=== PATIENT | female | born 1970 | race Caucasian/White ===

== ENCOUNTER 2016-08-07 12:20 | Emergency (ER) | payer OTHER ==
[~2016-08-07] VITALS: Ht 160 cm; Wt 44.3 kg
[~2016-08-07 12:20] MED LIST: CHERATUSSIN AC473 ML PO; CLARITHROMYCIN500 M1 PO; ENDOCET 5-3251 EACH PO; HYCODAN SYRUP480 ML PO; LEVAQUIN750 MG PO; LIDOCAINE700 MG TD; LODINE400 MG PO; LYRICA50 MG PO; MIRTAZAPINE45 MG PO; MOBIC7.5 MG PO; NAPROSYN500 MG PO; OXYMORPHONE HCL10 M1 PO; OXYMORPHONE HCL5 M1 PO; PREDNISONE20 MG PO; TIZANIDINE HCL4 MG PO; VENTOLIN HFA18 GM IH
[2016-08-07 12:53] LABS: HEMATOCRIT 45.4 % (36.0-46.0); MCH 29.8 PG (29.0-34.0); MCHC 33.3 G/DL (30.0-36.0); MCV 89.7 FL (83-99); MEAN PLAT.VOLUME 9.2 uM^3 (9.5-12.4); PLATELET COUNT 291 K/uL (156-360); RBC DIS.WIDTH-CV 12.9 % (11.8-14.6); RBC DIS.WIDTH-SD 42.5 % (39-53); RED BLOOD COUNT 5.06 M/uL (3.80-5.20); WHITE BLOOD COUNT 6.4 K/uL (4.1-10.2)
[2016-08-07 13:01] LABS: CHLORIDE 106 mEq/L (99-109); POTASSIUM 4.4 mEq/L (3.7-5.4); SODIUM 140 mEq/L (136-147)
[2016-08-07 13:02] LABS: GLUCOSE 96 mg/dL (70-99)
[2016-08-07 13:04] LABS: ANION GAP 9 MEQ/L (2-14)
[2016-08-07 13:06] LABS: GFR ESTIMATE (CALCULATED) > 59 mL/min/
[2016-08-07 13:07] LABS: UREA NITROGEN (BUN) 6 mg/dL (9-23)
[2016-08-07 13:54] LABS: ADD MIUA? YES; BILIRUBIN NEGATIVE; BLOOD MODERATE; COLOR YELLOW ((YELLOW)); GLUCOSE (STRIP) NEGATIVE; KETONES NEGATIVE; LEUKOCYTES NEGATIVE; NITRITE NEGATIVE; PROTEIN (STRIP) NEGATIVE; UROBILINOGEN 0.2 MG/DL (0.2-1.0)
[2016-08-07 14:03] LABS: BACTERIA RARE /HPF; CALCIUM OXALATE CRYSTALS 2+ /HPF; EPITHELIAL CELLS 1+ /HPF; MUCUS TRACE /LPF; RED BLOOD CELLS 0-5 /HPF (0-5); UCUL ADDED? NO; WHITE BLOOD CELLS 0-5 /HPF (0-5)
[2016-08-07] MEDS ORDERED: PERCOCET 5/31 TABLET PO (16:04)
[2016-08-07 16:13] VITALS: BP 113/64
== END 2016-08-07 16:14 | disposition home or self-care (01) ==
LOC: EME 12:20
DX: R10.31 Right lower quadrant pain (principal); J44.9 Chronic obstructive pulmonary disease, unspecified; E78.5 Hyperlipidemia, unspecified; Z87.442 Personal history of urinary calculi; G89.29 Other chronic pain; F17.200 Nicotine dependence, unspecified, uncomplicated
CPT/HCPCS: 74176; 80048; 81003; 85027; 99281; 99284

== ENCOUNTER 2016-08-13 12:54 | Observation (INO) | payer OTHER ==
[~2016-08-13] VITALS: Ht 157.5 cm; Wt 43.6 kg
[~2016-08-13 12:54] MED LIST changes: +PERCOCET 5/31 TABLET PO
[2016-08-13 14:15] LABS: HEMATOCRIT 46.9 % (36.0-46.0); MCHC 33.7 G/DL (30.0-36.0); MEAN PLAT.VOLUME 9.5 uM^3 (9.5-12.4); PLATELET COUNT 283 K/uL (156-360); RBC DIS.WIDTH-CV 12.6 % (11.8-14.6); RBC DIS.WIDTH-SD 41.4 % (39-53); RED BLOOD COUNT 5.27 M/uL (3.80-5.20); WHITE BLOOD COUNT 6.4 K/uL (4.1-10.2)
[2016-08-13 14:24] LABS: CHLORIDE 107 mEq/L (99-109); SODIUM 140 mEq/L (136-147)
[2016-08-13 14:26] LABS: GLUCOSE 85 mg/dL (70-99)
[2016-08-13 14:28] LABS: ANION GAP 11 MEQ/L (2-14)
[2016-08-13 14:30] LABS: ALKALINE PHOSPHATASE 98 IU/L (3-129); GFR ESTIMATE (CALCULATED) > 59 mL/min/
[2016-08-13 14:31] LABS: UREA NITROGEN (BUN) 8 mg/dL (9-23)
[2016-08-13 14:36] LABS: TROP-I INTERPRETATION NEGATIVE; TROPONIN-I < 0.01 ng/mL (0.0-0.30)
[2016-08-13 16:25] LABS: TROP-I INTERPRETATION NEGATIVE; TROPONIN-I < 0.01 ng/mL (0.0-0.30)
[2016-08-13 19:20] VITALS: BP 134/82
[2016-08-13 19:48] VITALS: BP 124/64
[2016-08-13 23:30] LABS: TROP-I INTERPRETATION NEGATIVE; TROPONIN-I < 0.01 ng/mL (0.0-0.30)
[2016-08-14] VITALS: BP 119/70; BP 120/57
[2016-08-14 04:00] VITALS: BP 111/53
[2016-08-14 06:19] LABS: TROP-I INTERPRETATION NEGATIVE; TROPONIN-I 0.02 ng/mL (0.0-0.30)
[2016-08-14 07:00] VITALS: BP 103/64
[2016-08-14] MEDS ORDERED: OMEPRAZOLE40 M1 PO (10:07)
[2016-08-14] MEDS ORDERED: ASPIR-LOW81 MG PO (10:07)
[2016-08-14 11:28] VITALS: BP 122/56
== END 2016-08-14 11:43 | disposition home or self-care (01) ==
LOC: EME 12:54 → RME 12:54 → EDOF 18:18 → 5WEST 18:18
PROVIDERS: Hospitalist; Physician Assistant
DX: R07.89 Other chest pain (principal); J44.9 Chronic obstructive pulmonary disease, unspecified; F17.200 Nicotine dependence, unspecified, uncomplicated; F41.9 Anxiety disorder, unspecified; G89.29 Other chronic pain
CPT/HCPCS: 71020; 76705; 80053; 84484; 85027; 93005; 99281; 99284; G0378; J2405

== ENCOUNTER 2017-06-08 18:41 | Observation (INO) | payer OTHER ==
[~2017-06-08] VITALS: Ht 157.5 cm; Wt 40.0 kg
[~2017-06-08 18:41] MED LIST changes: +ASPIR-LOW81 MG PO; +OMEPRAZOLE40 M1 PO
[2017-06-08 20:15] LABS: HEMATOCRIT 45.1 % (36.0-46.0); HEMOGLOBIN 15.2 G/DL (11.9-15.5); MCH 30.8 PG (29.0-34.0); MCHC 33.7 G/DL (30.0-36.0); MCV 91.5 FL (83-99); PLATELET COUNT 281 K/uL (156-360); RBC DIS.WIDTH-SD 43.8 % (39-53); RED BLOOD COUNT 4.93 M/uL (3.80-5.20); WHITE BLOOD COUNT 7.7 K/uL (4.1-10.2)
[2017-06-08 20:23] LABS: CHLORIDE 106 mEq/L (99-109); POTASSIUM 3.9 mEq/L (3.7-5.4); SODIUM 141 mEq/L (136-147)
[2017-06-08 20:24] LABS: GLUCOSE 87 mg/dL (70-99)
[2017-06-08 20:28] LABS: CREATININE 0.8 mg/dL (0.6-1.3); GFR ESTIMATE (CALCULATED) > 59 mL/min/
[2017-06-08 20:29] LABS: UREA NITROGEN (BUN) 6 mg/dL (9-23)
[2017-06-08 20:46] LABS: TROP-I INTERPRETATION NEGATIVE; TROPONIN-I < 0.01 ng/mL (0.0-0.30)
[2017-06-08] MEDS ORDERED: PERCOCET 7.51 TABLET PO (22:16)
[2017-06-09 02:01] LABS: D-DIMER ELISA < 150.00 ng/mLDDU (<230)
[2017-06-09 02:15] LABS: TROP-I INTERPRETATION NEGATIVE; TROPONIN-I < 0.01 ng/mL (0.0-0.30)
[2017-06-09 02:38] LABS: ALBUMIN 4.8 g/dL (3.2-4.8)
[2017-06-09 02:41] LABS: TOTAL PROTEIN 7.7 g/dL (6.4-8.3)
[2017-06-09 02:43] LABS: TOTAL BILIRUBIN 0.7 mg/dL (0.0-1.0)
[2017-06-09 02:44] LABS: ALKALINE PHOSPHATASE 99 IU/L (3-129)
[2017-06-09 02:47] LABS: ALT (GPT) 10 IU/L (3-49); AST (GOT) 14 IU/L (2-34); DIRECT BILIRUBIN 0.2 mg/dL (0.0-0.3)
[2017-06-09 02:48] LABS: LIPASE 12 U/L (1.0-51.0)
[2017-06-09 04:32] VITALS: BP 104/68
[2017-06-09 07:44] VITALS: BP 113/59
[2017-06-09 09:34] LABS: TROP-I INTERPRETATION NEGATIVE; TROPONIN-I < 0.01 ng/mL (0.0-0.30)
[2017-06-09 12:12] VITALS: BP 109/55
[2017-06-09] MEDS ORDERED: NAPROXEN500 MG PO (12:48)
[2017-06-09 14:54] VITALS: BP 107/68
== END 2017-06-09 14:45 | disposition home or self-care (01) ==
LOC: EME 18:41 → EXP 18:41 → EDOF 06-09 01:15 → ENRESERV 06-09 01:17 → 5WEST 06-09 03:51
PROVIDERS: Hospitalist
DX: R07.89 Other chest pain (principal); M79.602 Pain in left arm; J44.9 Chronic obstructive pulmonary disease, unspecified; G89.29 Other chronic pain; F17.200 Nicotine dependence, unspecified, uncomplicated; Z82.49 Family history of ischemic heart disease and other diseases of the circulatory system; M79.7 Fibromyalgia; E78.5 Hyperlipidemia, unspecified; Z87.442 Personal history of urinary calculi; Z90.710 Acquired absence of both cervix and uterus; Z88.6 Allergy status to analgesic agent
CPT/HCPCS: 71046; 80048; 80076; 83690; 84484; 85027; 85379; 93005; 94640; 99202; 99281; 99285; G0378; J1885